=== PATIENT | female | born 1985 | race Caucasian/White ===

== ENCOUNTER 2019-02-08 10:28 | Emergency (ER) | payer SELFPAY ==
--- NOTE | 2019-02-08 10:58 | ER ---
Nurse's Notes [facility] Name: Xiomara Ruffin Age: 33 yrs Sex: Female : 1985 Arrival Date: 02/08/2019 Time: 10:31 Bed 20 Private MD: Diagnosis: Cellulitis of left upper limb Presentation: 02/08 10:37 Presenting complaint: Patient states: thinks she got stung by a bee on Sunday, has iw had increased swelling to LFA since then. Transition of care: patient was not received from another setting of care. Onset of symptoms was February 05, 2019. Risk Assessment: Do you want to hurt yourself or someone else? Patient reports no desire to harm self or others. Initial Sepsis Screen: Does the patient meet any 2 criteria? No. Patient's initial sepsis screen is negative. Does the patient have a suspected source of infection? No. Patient's initial sepsis screen is negative. Care prior to arrival: None. 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 - Social history:: Smoking status: Patient/guardian denies using tobacco. - Ebola Screening: : Patient negative for fever greater than or equal to 101.5 degrees Fahrenheit, and additional compatible Ebola Virus Disease symptoms Patient denies exposure to infectious person Patient denies travel to an Ebola-affected area in the 21 days before illness onset No symptoms or risks identified at this time. Screenin:42 Abuse screen: Denies threats or abuse. Denies injuries from another. Nutritional iw screening: No deficits noted. Tuberculosis screening: No symptoms or risk factors identified. Fall Risk None identified. Assessment: 10:41 General: Appears in no apparent distress. Behavior is calm, cooperative. Pain: iw Complains of pain in dorsal aspect of left forearm and left wrist. Neuro: Level of Consciousness is awake, alert, obeys commands, Oriented to person, place, time, situation, Moves all extremities. Full function. Cardiovascular: Patient's skin is warm and dry. Respiratory: Respiratory effort is even, unlabored, Respiratory pattern is regular, symmetrical. GI: No signs and/or symptoms were reported involving the gastrointestinal system. : No signs and/or symptoms were reported regarding the genitourinary system. Derm: Skin is intact, Skin is pink, warm \T\ dry. normal. Musculoskeletal: Range of motion: intact in all extremities, Swelling present in dorsal aspect of left forearm and left wrist. 10:55 Reassessment: Patient appears in no apparent distress at this time. I agree with above iw assessment by Yared Bob LVN. 11:30 Reassessment: Patient appears in no apparent distress at this time. Patient and/or em family updated on plan of care and expected duration. Pain level reassessed. Patient is alert, oriented x 3, equal unlabored respirations, skin warm/dry/pink. pending shot time. Vital Signs: 10:39 BP 107 / 72; Pulse 88; Resp 16; Temp 97.2; Pulse Ox 100% on R/A; Weight 75.3 kg; Height iw 5 ft. 8 in. (172.72 cm); Pain 8/10; 10:39 Body Mass Index 25.24 (75.30 kg, 172.72 cm) iw ED Course: 10:31 Patient arrived in ED. mr 10:36 Yared Bob LVN is Primary Nurse. em 10:36 Laureano Ruth NP is PHCP. pm1 10:36 Bg Hamilton MD is Attending Physician. pm1 10:38 Triage completed. iw 10:40 Arm band placed on. iw 11:36 Patient has correct armband on for positive identification. Bed in low position. Call em light in reach. Adult w/ patient. 11:36 No provider procedures requiring assistance completed. Patient did not have IV access em during this emergency room visit. Administered Medications: 11:26 Drug: Decadron 10 mg Route: IM; Site: right deltoid; em 11:59 Follow up: Response: No adverse reaction em 11:27 Drug: Clindamycin 600 mg {Note: 2 ml given in the left gluteus, 2 ml given in the right em gluteus.} Route: IM; Site: Other; 11:59 Follow up: Response: No adverse reaction em Outcome: 10:58 Discharge ordered by MD. pm1 12:18 Discharged to home ambulatory. em 12:18 Condition: good 12:18 Discharge instructions given to patient, family, Instructed on discharge instructions, follow up and referral plans. medication usage, Demonstrated understanding of instructions, follow-up care, medications, Prescriptions given X 3. 12:18 Patient left the ED. em Signatures: Clara Talley Edgar, LISW LISW em Estela Kwan, RASHAUN RN iw Laureano Ruth NP PEDIATRIC MEDICAL ASSISTANT pm1
--- NOTE | 2019-02-08 10:59 | EDPHYS ---
Physician Documentation [facility] Name: Xiomara Ruffin Age: 33 yrs Sex: Female : 1985 Arrival Date: 02/08/2019 Time: 10:31 Bed 20 Private MD: ED Physician Bg Hamilton HPI: 02/08 10:56 This 33 yrs old Female presents to ER via Ambulatory with complaints of pm1 Insect Bite. 10:56 The patient's rash thought to be caused by insect bites. The rash is located on the pm1 left arm and dorsal aspect of left forearm. The rash can be described as raised. Onset: The symptoms/episode began/occurred 3 day(s) ago. Associated signs and symptoms: Pertinent positives: itching, Had apparent boil at area of insect bite that she expressed some pus from, Pertinent negatives: fever, swelling of lips, swelling of throat, swelling of tongue, vomiting. Severity of symptoms: in the emergency department the symptoms have improved. Treatment given at home: Benadryl, ice pack. The patient has not experienced similar symptoms in the past. The patient has not recently seen a physician. 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 - Social history:: Smoking status: Patient/guardian denies using tobacco. - Ebola Screening: : Patient negative for fever greater than or equal to 101.5 degrees Fahrenheit, and additional compatible Ebola Virus Disease symptoms Patient denies exposure to infectious person Patient denies travel to an Ebola-affected area in the 21 days before illness onset No symptoms or risks identified at this time. ROS: 10:56 Constitutional: Negative for fever, chills, and weight loss, Eyes: Negative for injury, pm1 pain, redness, and discharge, ENT: Negative for injury, pain, and discharge, Neck: Negative for injury, pain, and swelling, Cardiovascular: Negative for chest pain, palpitations, and edema, Respiratory: Negative for shortness of breath, cough, wheezing, and pleuritic chest pain, Abdomen/GI: Negative for abdominal pain, nausea, vomiting, diarrhea, and constipation, Back: Negative for injury and pain, : Negative for injury, bleeding, discharge, and swelling, MS/Extremity: Negative for injury and deformity. 10:56 Neuro: Negative for headache, weakness, numbness, tingling, and seizure. 10:56 Skin: Positive for cellulitis, swelling, of the dorsal aspect of left forearm. Exam: 10:56 Constitutional: This is a well developed, well nourished patient who is awake, alert, pm1 and in no acute distress. Head/Face: Normocephalic, atraumatic. Chest/axilla: Normal chest wall appearance and motion. Nontender with no deformity. No lesions are appreciated. Cardiovascular: Regular rate and rhythm with a normal S1 and S2. No gallops, murmurs, or rubs. Normal PMI, no JVD. No pulse deficits. Respiratory: Lungs have equal breath sounds bilaterally, clear to auscultation and percussion. No rales, rhonchi or wheezes noted. No increased work of breathing, no retractions or nasal flaring. Back: No spinal tenderness. No costovertebral tenderness. Full range of motion. 10:56 MS/ Extremity: Pulses equal, no cyanosis. Neurovascular intact. Full, normal range of motion. 10:56 Skin: Appearance: normal except for affected area, abscess, not appreciated, cellulitis, that is mild, on the dorsal aspect of left forearm. 10:56 Neuro: Orientation: is normal, Motor: is normal, moves all fours, Sensation: is normal, no obvious gross deficits, Gait: is steady, at a normal pace, without difficulty. Vital Signs: 10:39 BP 107 / 72; Pulse 88; Resp 16; Temp 97.2; Pulse Ox 100% on R/A; Weight 75.3 kg; Height iw 5 ft. 8 in. (172.72 cm); Pain 8/10; 10:39 Body Mass Index 25.24 (75.30 kg, 172.72 cm) iw MDM: 10:39 Patient medically screened. pm1 10:56 Data reviewed: vital signs. Data interpreted: Pulse oximetry: on room air is 100 %. pm1 Interpretation: normal. Counseling: I had a detailed discussion with the patient and/or guardian regarding: the historical points, exam findings, and any diagnostic results supporting the discharge/admit diagnosis, the need for outpatient follow up, a family practitioner. Administered Medications: 11:26 Drug: Decadron 10 mg Route: IM; Site: right deltoid; em 11:59 Follow up: Response: No adverse reaction em 11:27 Drug: Clindamycin 600 mg {Note: 2 ml given in the left gluteus, 2 ml given in the right em gluteus.} Route: IM; Site: Other; 11:59 Follow up: Response: No adverse reaction em Disposition: 12:41 Co-signature as Attending Physician, Bg Hamilton MD. ma2 Disposition: 02/08/19 10:58 Discharged to Home. Impression: Cellulitis of left upper limb. - Condition is Stable. - Discharge Instructions: Insect Bite, Cellulitis, Adult. - Prescriptions for Clindamycin HCl 300 mg Oral Capsule - take 1 capsule by ORAL route every 6 hours for 10 days; 40 capsule. Medrol (Gaurav) 4 mg Oral Tablets, Dose Pack - take 1 tablet by ORAL route as directed - follow package instructions; 1 packet. Doxycycline Hyclate 100 mg Oral Tablet - take 1 tablet by ORAL route every 12 hours; 20 tablet. - Medication Reconciliation Form, Thank You Letter, Antibiotic Education, Prescription Opioid Use form. - Follow up: Emergency Department; When: As needed; Reason: Worsening of condition. Follow up: Private Physician; When: 2 - 3 days; Reason: Recheck today's complaints, Continuance of care, Re-evaluation by your physician. - Problem is new. - Symptoms have improved. Signatures: Yared Bob, JUVENILE PROBATION OFFICER JUVENILE PROBATION OFFICER em Estela Kwan RN RN iw Laureano Ruth, [address] PHOTOGRAPHER pm1 Bg Hamilton MD MD ma2 Corrections: (The following items were deleted from the chart) 12:18 10:58 02/08/2019 10:58 Discharged to Home. Impression: Cellulitis of left upper limb. em Condition is Stable. Forms are Medication Reconciliation Form, Thank You Letter, Antibiotic Education, Prescription Opioid Use. Follow up: Emergency Department; When: As needed; Reason: Worsening of condition. Follow up: Private Physician; When: 2 - 3 days; Reason: Recheck today's complaints, Continuance of care, Re-evaluation by your physician. Problem is new. Symptoms have improved. pm1
[2019-02-08] MEDS ORDERED: CLINDAMYCIN IV 150 MG/ML (4 mL) VIAL ONE (11:24)
[2019-02-08] MEDS ORDERED: dexAMETHasone 10 MG/ML VIAL ONE (11:26)
== END 2019-02-08 12:18 | disposition home or self-care (01) ==
LOC: ER 10:28
DX: L03.114 Cellulitis of left upper limb (principal); Z88.0 Allergy status to penicillin
CPT/HCPCS: 96372; 99283; J1100; S0077